=== PATIENT | female | born 1995 | race Two or more races ===

== ENCOUNTER 2024-05-07 05:09 | Emergency (ER) | payer BC, SELFPAY ==
[2024-05-07 05:10] VITALS: BMI 26.5
[2024-05-07 05:17] VITALS: BP 119/69; PULSE 92; RESP 16; TEMP 36.8; O2SAT 98
--- NOTE | 2024-05-07 05:24 | PD.EDRME ---
Rapid Medical Screening Exam RME Arrival date/time: 05/07/24 05:09 28-year-old female presents emergency department complaining of epigastric pain. Chief Complaint: Abdominal Pain Vital signs: Vital Signs Temperature 98.3 F 05/07/24 05:17 Pulse Rate 92 05/07/24 05:17 Respiratory Rate 16 05/07/24 05:17 Blood Pressure 119/69 05/07/24 05:17 Pulse Oximetry (%) 98 05/07/24 05:17 Oxygen Delivery Method Room Air 05/07/24 05:17 Vital signs reviewed by provider: Yes
[2024-05-07 06:00] VITALS: BP 120/80; PULSE 89; RESP 16; TEMP 36.8; O2SAT 100
[2024-05-07 06:16] LABS: Basophils % (Auto) 0 % (0-2.5); Eosinophils % (Auto) 0 % (0-10); Hematocrit 32.2 % (36.0-46.0); Hemoglobin 10.7 g/dL (12.0-16.0); Immature Granulocytes % (Auto) 0 % (0-0); Immature Granulocytes Auto 0.01 Thou/mm3 (0.00-0.00); Lymphocytes # (Auto) 2.2 Thou/mm3 (1.0-4.8); Lymphocytes % (Auto) 46 % (10-50); Mean Corpuscular HGB Conc 33.2 g/dl (31.0-37.0); Mean Corpuscular Hemoglobin 26.9 pg (25.0-35.0); Mean Corpuscular Volume 81 fL (80-100); Monocytes # (Auto) 0.5 Thou/mm3 (0.0-0.8); Monocytes % (Auto) 11 % (0-12); Neutrophils % (Auto) 43 % (37-80); Nucleated Red Blood Cell % 0 /100 WBC (0); Platelet Count 222 Thou/mm3 (140-440); Red Blood Count 3.98 Miln/mm3 (4.00-5.20); White Blood Count 4.7 Thou/mm3 (3.6-11.0)
[2024-05-07 06:28] LABS: Alanine Aminotransferase 11 U/L (10-49); Albumin, Serum 4.7 gm/dL (3.5-5.0); Albumin/Globulin Ratio 1.3 (1.2-2.2); Alkaline Phosphatase 38 U/L (46-116); Anion Gap 9 (7-16); Aspartate Amino Transferase 19 U/L (0-34); BUN/Creatinine Ratio 11 Ratio (12-20); Bilirubin,Total 0.4 mg/dL (0.3-1.2); Blood Urea Nitrogen 9 mg/dL (9-23); Calcium 9.3 mg/dL (8.3-10.6); Calcium (Corrected) 9.3 mg/dL (8.5-10.1); Carbon Dioxide 23.9 mMol/L (20.0-31.0); Chloride 105 mMol/L (98-107); Creatinine (Component) 0.8 mg/dL (0.6-1.3); Estimated Creatinine Clearance 92.3 mL/min (>60); Globulin 3.6 gm/dL (2.3-3.5); Glucose 101 mg/dL (74-106); Lipase 53 U/L (12-53); Osmolality,Calculated 274 (275-295); Potassium 3.4 mMol/L (3.4-5.1); Sodium 138 mMol/L (136-145); Total Protein 8.3 gm/dL (5.7-8.2); eGFR > 60 See Note
[2024-05-07 06:32] LABS: HCG,Qualitative Serum Negative
--- NOTE | 2024-05-07 07:25 | XR_ITS ---
Examination: Abdomen sonogram, complete Date and time of exam: May 07, 2020 4003 hrs. Indications: Epigastric pain beginning 10 days ago. Technique: Multiple real-time grayscale transabdominal sonographic images of the abdomen have been obtained. Findings: Normal gallbladder Normal common bile duct 0.40 cm Pancreatic head 2.0 cm Aorta not enlarged Liver 12.3 cm no liver lesions Normal hepatopedal portal venous flow Patent IVC Right kidney 10.3 x 3.8 x 5.3 cm cortex 1.6 cm Left kidney 10.9 x 5.7 x 5.1 cm cortex 2.1 cm No hydronephrosis Spleen 8.5 cm Impression: Negative examination
[2024-05-07 07:57] LABS: Collection Type, Urine Clean Catch
[2024-05-07 08:08] LABS: Bacteria,Urine Rare; Bilirubin,Urine Negative (Negative); Blood,Urine 3+ (Negative); Clarity,Urine Clear (Clear/Hazy); Color,Urine Colorless (Lt Yel-Yel); Glucose, Urine Negative (Negative); Ketones,Urine Negative (Negative); Leukocyte Esterase,Urine Negative (Negative); Nitrite,Urine Negative (Negative); Protein,Urine Negative (Neg - Trace); RBC,Urine 58 /hpf (0-3); Specific Gravity,Urine 1.005 (1.001-1.035); Squamous Epithelial Cell,Urine 1 /hpf (0-5); Urobilinogen,Urine Negative mg/dL (0.0-1.0); WBC,Urine 12 /hpf (0-5)
[2024-05-07 08:09] LABS: Culture Indicated,Urine Yes
[2024-05-07 08:16] LABS: Amphetamine/Methamp Scrn,U Negative (Negative); Barbiturate Screen,Urine Negative (Negative); Benzodiazepines Screen,Urine Negative (Negative); Benzoylecgonine Screen, Ur Negative (Negative); Fentanyl Screen,Urine Negative (Negative); Opiate Screen,Urine Negative (Negative); THC Screen,Urine Negative (Negative)
[2024-05-07 08:52] VITALS: BP 105/63; PULSE 71; RESP 17; TEMP 37.1; O2SAT 100
--- NOTE | 2024-05-07 12:31 | PD.EDABDPN ---
ED Abdominal Pain RME/HPI General Chief Complaint: Abdominal Pain Stated complaint: EPIGASTRIC PAIN Time seen by provider: 05/07/24 07:16 Arrival date/time: 05/07/24 05:09 RME / HPI RME / HPI narrative: 05/07/24 05:09 28-year-old female presents emergency department complaining of epigastric pain. The patient presented to the emergency department complaining of epigastric abdominal pain which is mild to moderate. It has been going on for nearly 10 days on and off. She is still eating normally. No fever. Nausea with no vomiting. No diarrhea. A little bit constipated. No dysuria. Not . In fact menstruation is now. Related Data Previous Rx's ?Medication ?Instructions ?Recorded azithromycin 250 mg tablet See Rx Instructions PO .COMPLEX #6 05/23/21 (Zithromax Z-Lyle) tabs dexamethasone 6 mg tablet 6 mg PO QDAY #10 tabs 05/23/21 ibuprofen 600 mg tablet 600 mg PO Q6H #30 tabs 11/22/23 ondansetron 4 mg disintegrating 4 mg PO Q8H PRN nausea and 11/22/23 tablet vomiting #10 tabs Allergies Allergy/AdvReac Type Severity Reaction Status Date / Time No Known Allergies Allergy Verified 11/22/23 09:40 Review of Systems Review of Systems Narrative Review of Systems: REVIEW OF SYSTEM: GEN:? negative except mentioned in HPI HEENT:? negative except mentioned in HPI NECK:? negative except mentioned in HPI PULM:? negative except mentioned in HPI CARD:? negative except mentioned in HPI GI:? negative except mentioned in HPI MUSCULO/SKET: negative except mentioned in HPI SKIN:? negative except mentioned in HPI NEURO:? negative except mentioned in HPI PSYCH:? negative except mentioned in HPI Past Medical History Past Medical History CARDIAC: Negative Cardiac Disorders or Congestive Heart Failure RESPIRATORY: Negative Chronic Obstructive Pulmonary Disease (COPD) or Asthma GENITOURINARY: Negative Renal Disease ENDOCRINE: Negative Diabetes Mellitus Type 1 or Diabetes Mellitus Type 2 HEMATOLOGIC: Negative Sickle Cell Disease Social History SMOKING STATUS: Never smoker Past Medical History Comments PMH COMMENT: Patient has had a lot of umbilical hernia and ventral hernia repair episode. Also history of anemia. No smoking. No alcohol. No drug use. ED Exam Narrative Physical exam: Aaox4. No acute distress O2 saturation is normal Heent:? perra. Eomi. No icteric. Neck: full rom.? No mass.? No jvd.? No lymphadenopathy Lungs:? clear, full, equal Heart:? s1s2.? Rrr.? No murmur, gallop or rub. Abd: soft, nondistended, nontender, no mass, no rebound or guarding, no flank tender.? No incarcerated? hernia Ext:? full rom.? No deformity.? Normal csm. Neuro:?? intact cn2 to 12.? No facial droop.? No slurred speech.? No focal deficit.? Moves all 4ext Skin:? no rash.? No cellulitis.? No lesion.? No laceration Psychiatrical: no suicidal.? No homicidal.? No delusion.? No hallucinating Course Quality Measures none Orders Category Date Time Status US abdomen Stat Exams 05/07/24 07:25 Completed CBC Stat Lab 05/07/24 06:03 Completed CMP [Comprehensive Metabolic Panel] Stat Lab 05/07/24 06:03 Completed Drug Screen,Urine Stat Lab 05/07/24 07:42 Completed HCG,Qualitative Serum Stat Lab 05/07/24 06:03 Completed Lipase Stat Lab 05/07/24 06:03 Completed Urinalysis, C/S if Indicated Stat Lab 05/07/24 07:42 Completed Urine Culture Stat Lab 05/07/24 07:42 Received Vital Signs Vital signs: Vital Signs Temperature 98.3 F 05/07/24 05:17 Pulse Rate 92 05/07/24 05:17 Respiratory Rate 16 05/07/24 05:17 Blood Pressure 119/69 05/07/24 05:17 Pulse Oximetry (%) 98 05/07/24 05:17 Oxygen Delivery Method Room Air 05/07/24 05:17 Abdominal Pain MDM MDM Narrative MDM Narrative:: CBC unremarkable. CMP and lipase are negative. UA is negative. test is negative. U tox is negative. [facility] [address] [place] [address] [facility] Report Signed Patient: BELÉN PALUMBO. Record#: [id number] Birthdate: 1995 Age/Sex: 28 / F Location: [facility] Attending Dr: Ordering Physician: Joselo Das MD Date of Service: 05/07/24 Procedure(s): US abdomen Accession Number(s): [id number] cc: Damion Freeman MD; Aristeo Alvarez MD; Joselo Das MD~ Examination: Abdomen sonogram, complete Date and time of exam: May 07, 2020 4003 hrs. Indications: Epigastric pain beginning 10 days ago. Technique: Multiple real-time grayscale transabdominal sonographic images of the abdomen have been obtained. 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 12:33 PM, the patient is symptom-free and eager to go home. Patient data External records reviewed:: [facility] previous records Clinical information provided by:: patient Social determinants that could affect healthcare access:: none Patient has the following chronic illnesses:: None How is presenting disease/condition affected by chronic disease/condition?: no chronic disease Evaluation data The following diagnostics were reviewed and interpreted by me:: lab results and radiology exam(s) Lab and/or radiology exams considered but not ordered:: None Interpretation Summary: See [facility] Medications / Prescriptions Medications or Prescriptions considered but not ordered:: None Medication administrations:: None Consultations Consultation(s) initiated? (list below): No Diagnosis Differential diagnosis abdominal pain: abdominal pain, calculus of kidney and other (Cholelithiasis. Cholecystitis.) Most likely diagnosis given after review of the tests above:: Abdominal pain Admission Indicated Admission indicated?: not indicated Admission Request Was there a request for admission?: No Disposition Plan Disposition Plan: Discharge Discharge Attestation Discharge Attestation: The patient and all family members were given an opportunity to ask questions and understood the discharge instructions. Discharge instructions specifically effects, indications for sooner follow up or return to the emergency department, and the expected course of current diagnosis. Patient condition: Stable Discharge Plan Plan Patient Disposition: HOME (Self Care) Disposition Comment: Stable for DC home Prescriptions/Referrals Prescriptions/Med Rec: No Action azithromycin [Zithromax Z-Lyle] 250 mg tablet See Rx Instructions .ROUTE .COMPLEX Qty: 6 0RF Rx Instructions: take 500 mg today (day 1), then 250 mg for 4 days (days 2-5) dexamethasone 6 mg tablet 6 mg PO QDAY Qty: 10 0RF ibuprofen 600 mg tablet 600 mg PO Q6H Qty: 30 0RF ondansetron 4 mg tablet,disintegrating 4 mg PO Q8H PRN (Reason: nausea and vomiting) Qty: 10 0RF Referrals: Damion Freeman MD [Primary Care Provider] - In 1 week Problem List Clinical Impression: Abdominal pain Patient/Caregiver Discharge Instructions Education Materials: Abdominal Pain Additional Instructions: Liquid diet for 24 hours. See your doctor for recheck in 3 days. Return to the emergency department if condition worsens or if new symptoms develop especially fever Print Language: Telugu Stand Alone Forms: Mae Award Info., Patient Portal Info Letter
== END 2024-05-07 12:50 | disposition home or self-care (01) ==
PROVIDERS: Emergency Provider Emergency Medicine; PCP Internal Medicine
DX: R10.13 Epigastric pain (principal)
CPT/HCPCS: 36415; 76700; 80053; 80307; 81001; 83690; 84703; 85025; 87086; 99284

== ENCOUNTER 2024-05-10 19:09 | Emergency (ER) | payer BC, SELFPAY ==
[2024-05-10 19:11] VITALS: BMI 26.5
--- NOTE | 2024-05-10 19:15 | EKG_ITS ---
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
[2024-05-10 19:19] VITALS: BP 115/78; PULSE 76; RESP 20; TEMP 37.1; O2SAT 98
--- NOTE | 2024-05-10 19:56 | PD.EDANX ---
ED Anxiety RME/HPI General Chief Complaint: Dizziness Stated Complaint: Dizziness and CP tightness with breathing Time Seen by Provider: 05/10/24 19:55 Arrival date/time: 05/10/24 19:09 28F with history of chronic sinusitis and anxiety presents to ED with sudden dizziness, CP, SOB, and anxiety w/o trigger today. It is getting better, but still there. Patient saw ENT doctor who will do sinus endoscopy next month. Patient denies SI/HI. Patient was here several days ago for ab pain with unremarkable blood work and urine studies. Limitations: no limitations Related Data Previous Rx's ?Medication ?Instructions ?Recorded azithromycin 250 mg tablet See Rx Instructions PO .COMPLEX #6 05/23/21 (Zithromax Z-Lyle) tabs dexamethasone 6 mg tablet 6 mg PO QDAY #10 tabs 05/23/21 ibuprofen 600 mg tablet 600 mg PO Q6H #30 tabs 11/22/23 ondansetron 4 mg disintegrating 4 mg PO Q8H PRN nausea and 11/22/23 tablet vomiting #10 tabs Allergies Allergy/AdvReac Type Severity Reaction Status Date / Time No Known Allergies Allergy Verified 11/22/23 09:40 Review of Systems Review of Systems Systems Reviewed: All systems reviewed, normal except as documented Constitutional Constitutional: Reports system reviewed and no additional complaints, except as documented, Denies fever(s) and Denies headache(s) ENT Ears, Nose, Mouth, and Throat: Reports as per HPI, Denies disequilibrium, Denies headache(s) and Reports vertigo Cardiovascular Cardiovascular: Reports system reviewed and no additional complaints, except as documented, Reports as per HPI, Reports chest pain and Reports dyspnea Respiratory Respiratory: Reports system reviewed and no additional complaints, except as documented, Denies cough and Reports dyspnea Gastrointestinal Gastrointestinal: Reports system reviewed and no additional complaints, except as documented, Denies abdominal pain, Denies nausea and Denies vomiting Neurologic Neurologic: Reports system reviewed and no additional complaints, except as documented, Denies confusion, Denies disequilibrium, Denies headache(s) and Reports vertigo Psychiatric Psychiatric: Denies confusion Past Medical History Past Medical History CARDIAC: Negative Cardiac Disorders or Congestive Heart Failure RESPIRATORY: Negative Chronic Obstructive Pulmonary Disease (COPD) or Asthma GENITOURINARY: Negative Renal Disease ENDOCRINE: Negative Diabetes Mellitus Type 1 or Diabetes Mellitus Type 2 HEMATOLOGIC: Negative Sickle Cell Disease Social History SMOKING STATUS: Never smoker ED Exam General Limitations: Present no limitations General appearance: Present alert and in no apparent distress Head Head exam: Present atraumatic Eye Eye exam: Present normal appearance, PERRL and EOMI ENT ENT exam: Present normal exam, normal oropharynx and mucous membranes moist Neck Neck exam: Present normal inspection, full ROM and trachea midline Chest Chest inspection: Present normal inspection and symmetric chest wall rise Respiratory Respiratory exam: Present normal lung sounds bilaterally Cardiovascular Cardiovascular exam: Present regular rate, normal rhythm and normal heart sounds Abdominal Exam Abdominal exam: Present soft and normal bowel sounds Extremities Exam Extremities exam: Present normal inspection and full ROM Back Exam Back exam: Present normal inspection and full ROM Neurological Exam Neurological exam: Present alert, oriented X3 and CN II-XII intact Psychiatric Psychiatric exam: Present normal affect and anxious (mild) Skin Skin exam: Present warm, dry, intact and normal color Course Quality Measures none Orders Category Date Time Status EKG (ED ONLY) *Do not use* NOW Care 05/10/24 19:15 Completed EKG (ED Only) Stat Exams 05/10/24 19:15 Draft Diazepam [Valium] Med 05/10/24 19:55 Discontinued 10 mg PO X1 ONE Vital Signs Vital signs: Vital Signs Temperature 98.7 F 05/10/24 19:19 Pulse Rate 76 05/10/24 19:19 Respiratory Rate 20 05/10/24 19:19 Blood Pressure 115/78 05/10/24 19:19 Pulse Oximetry (%) 98 05/10/24 19:19 Oxygen Delivery Method Room Air 05/10/24 19:19 Anxiety MDM Narrative MDM Narrative: 28F with history of chronic sinusitis and anxiety presents to ED with sudden dizziness, CP, SOB, and anxiety w/o trigger today. It is getting better, but still there. Patient saw ENT doctor who will do sinus endoscopy next month. Patient denies SI/HI. Patient was here several days ago for ab pain with unremarkable blood work and urine studies. Physical exam reveals normal pupil response and EOM. ENT and lungs clear. RRR. Patient is afebrile, alert, but mildly anxious. EKG is NSR. Likely anxiety/panic attack with chronic sinusitis contributing to dizziness. Valium improved symptoms. Patient data External records reviewed:: [facility] previous records Clinical information provided by:: patient Social determinants that could affect healthcare access:: mental health Patient has the following chronic illnesses:: anxiety How is presenting disease/condition affected by chronic disease/condition?: exacerbated by Evaluation data The following diagnostics were reviewed and interpreted by me:: EKG tracing(s) Lab and/or radiology exams considered but not ordered:: ordered Interpretation Summary: above Medications / Prescriptions Medications or Prescriptions considered but not ordered:: ordered Medication administrations:: Medication Administration History Discontinued Medications Diazepam (Diazepam 5 Mg Tablet) 10 mg PO X1 ONE Stop: 05/10/24 19:56 Consultations Consultation(s) initiated? (list below): No Diagnosis Differential diagnosis anxiety: hyperventilation, panic disorder and acute anxiety Most likely diagnosis given after review of the tests above:: anxiety Admission Indicated Admission indicated?: not indicated Admission Request Was there a request for admission?: No Disposition Plan Disposition Plan: Discharge Discharge Attestation Discharge Attestation: The patient and all family members were given an opportunity to ask questions and understood the discharge instructions. Discharge instructions specifically effects, indications for sooner follow up or return to the emergency department, and the expected course of current diagnosis. Patient condition: Stable Discharge Plan Plan Patient Disposition: HOME (Self Care) Disposition Comment: Stable Prescriptions/Referrals Prescriptions/Med Rec: No Action azithromycin [Zithromax Z-Lyle] 250 mg tablet See Rx Instructions .ROUTE .COMPLEX Qty: 6 0RF Rx Instructions: take 500 mg today (day 1), then 250 mg for 4 days (days 2-5) dexamethasone 6 mg tablet 6 mg PO QDAY Qty: 10 0RF ibuprofen 600 mg tablet 600 mg PO Q6H Qty: 30 0RF ondansetron 4 mg tablet,disintegrating 4 mg PO Q8H PRN (Reason: nausea and vomiting) Qty: 10 0RF Referrals: Damion Freeman MD [Primary Care Provider] - In 1 week Problem List Clinical Impression: Anxiety Patient/Caregiver Discharge Instructions Education Materials: Your Body's Response to Anxiety Additional Instructions: Please follow-up with PCP within 24-48 hours and return immediately if symptoms worsen. Print Language: Thai Stand Alone Forms: Patient Portal Info Letter PA/LANDEN Supervising Physician HUEY/LADNEN Supervising Physician: Dr. Hendrickson
[2024-05-10] MEDS: DIAZEPAM 5 MG TABLET 10 MG PO (20:01)
== END 2024-05-10 20:53 | disposition home or self-care (01) ==
PROVIDERS: Emergency Provider Emergency Medicine; PCP Internal Medicine
DX: F41.9 Anxiety disorder, unspecified (principal); R94.31 Abnormal electrocardiogram [ECG] [EKG]
CPT/HCPCS: 93005; 99283; A9270

== ENCOUNTER → 2024-08-18 | Outpatient (CLI) | payer BC, SELFPAY ==
[2024-08-18 10:21] LABS: Basophils % (Auto) 0 % (0-2.5); Eosinophils % (Auto) 0 % (0-10); Hematocrit 31.2 % (36.0-46.0); Hemoglobin 10.4 g/dL (12.0-16.0); Immature Granulocytes % (Auto) 0 % (0-0); Immature Granulocytes Auto 0.01 Thou/mm3 (0.00-0.00); Lymphocytes # (Auto) 1.6 Thou/mm3 (1.0-4.8); Lymphocytes % (Auto) 42 % (10-50); Mean Corpuscular HGB Conc 33.3 g/dl (31.0-37.0); Mean Corpuscular Hemoglobin 25.9 pg (25.0-35.0); Mean Corpuscular Volume 78 fL (80-100); Monocytes # (Auto) 0.4 Thou/mm3 (0.0-0.8); Monocytes % (Auto) 10 % (0-12); Neutrophils # (Auto) 1.8 Thou/mm3 (1.8-7.7); Neutrophils % (Auto) 47 % (37-80); Nucleated Red Blood Cell % 0 /100 WBC (0); Platelet Count 211 Thou/mm3 (140-440); RDW Standard Deviation 42.8 fL (36.4-46.3); Red Blood Count 4.02 Miln/mm3 (4.00-5.20); White Blood Count 3.9 Thou/mm3 (3.6-11.0)
[2024-08-18 11:39] LABS: Ferritin 4 ng/mL (7.3-270.7); Iron 41 mcg/dL (50-170)
[2024-08-18 11:51] LABS: Glucose Estimated Average 120 mg/dL (80-131); Hemoglobin A1C 5.8 % Hgb (4.8-6.0)
[2024-08-18 11:53] LABS: Vitamin B12 460 pg/mL (211-911); Vitamin D 25 Hydroxy Total 28.9 ng/mL (7.3-40.2)
[2024-08-18 11:54] LABS: Alanine Aminotransferase 10 U/L (10-49); Albumin, Serum 4.5 gm/dL (3.5-5.0); Albumin/Globulin Ratio 1.3 (1.2-2.2); Alkaline Phosphatase 31 U/L (46-116); Anion Gap 10 (7-16); Aspartate Amino Transferase 20 U/L (0-34); BUN/Creatinine Ratio 17 Ratio (12-20); Bilirubin,Total 0.4 mg/dL (0.3-1.2); Blood Urea Nitrogen 12 mg/dL (9-23); Calcium 9.9 mg/dL (8.3-10.6); Calcium (Corrected) 9.9 mg/dL (8.5-10.1); Carbon Dioxide 23.5 mMol/L (20.0-31.0); Cardiac Risk Estimate 2.8 RATIO (3.7-5.6); Chloride 107 mMol/L (98-107); Cholesterol 158 mg/dL (132-200); Creatinine (Component) 0.7 mg/dL (0.6-1.3); Free T4 (Free Thyroxine) 1.09 ng/dL (0.89-1.76); Globulin 3.5 gm/dL (2.3-3.5); Glucose 87 mg/dL (74-106); HDL Cholesterol 57 mg/dL (40-60); LDL Cholesterol,Calculated 91 mg/dL (0-130); Osmolality,Calculated 278 (275-295); Potassium 4.1 mMol/L (3.4-5.1); Sodium 140 mMol/L (136-145); Thyroid Stimulating Hormone 1.17 uIU/mL (0.55-4.78); Triglycerides 51 mg/dL (30-150); eGFR > 60 See Note
== END | disposition home or self-care (01) ==
LOC: COPL 09:25
PROVIDERS: PCP Internal Medicine; Referring Provider Internal Medicine; Visit Provider Internal Medicine
DX: Z00.00 Encounter for general adult medical examination without abnormal findings (principal); E55.9 Vitamin D deficiency, unspecified
CPT/HCPCS: 36415; 80053; 80061; 82306; 82607; 82728; 83036; 83540; 84439; 84443; 85025

== ENCOUNTER → 2024-09-14 | Outpatient (CLI) | payer BC, SELFPAY ==
[2024-09-22 06:49] LABS: ANA Pattern CYTOPLASMIC; ANA Pattern NUCLEAR, SPECKLED; ANA Screen, IFA POSITIVE (NEGATIVE)
== END | disposition home or self-care (01) ==
PROVIDERS: PCP Internal Medicine; Referring Provider Specialist; Visit Provider Specialist
DX: R53.83 Other fatigue (principal)
CPT/HCPCS: 36415; 86038

== ENCOUNTER → 2024-10-27 | Outpatient (CLI) | payer BC, SELFPAY ==
--- NOTE | 2024-10-27 13:30 | XR_ITS ---
Examination: Abdomen sonogram, Limited Date and time of exam: October 27, 2024 1331 hours INDICATIONS: Heartburn esophageal reflux 3 years Technique: Real-time strange scale transabdominal sonographic images of the upper abdomen obtained. Findings: Normal gallbladder Normal common bile duct 0.3 cm Pancreatic head 1.5 cm Liver 13 cm fatty infiltration smooth contour No focal liver lesions Normal hepatopedal portal venous flow IMPRESSION: Normal gallbladder Normal common bile duct Fatty liver
--- NOTE | 2024-10-27 14:00 | XR_ITS ---
Examination: Thyroid sonography complete TECHNIQUE: Grayscale sonographic images thyroid lobes Date and time: October 27, 2024 1326 hours INDICATIONS: Fatigue one year FINDINGS: Right thyroid 4.5 cm Left thyroid 3.6 cm No solid nodules IMPRESSION: Negative examination
== END | disposition home or self-care (01) ==
LOC: CDIM 13:15
PROVIDERS: PCP Internal Medicine; Referring Provider Specialist; Visit Provider Specialist
DX: K76.0 Fatty (change of) liver, not elsewhere classified (principal); R53.83 Other fatigue
CPT/HCPCS: 76536; 76705

== ENCOUNTER 2024-11-17 12:00 | Day surgery (SDC) | payer BC, SELFPAY ==
[2024-11-16 15:34] LABS: HCG Qualitative,Urine Negative
[2024-11-16 16:26] VITALS: BMI 24.1
[2024-11-17] VITALS (10 sets, daily range): BP systolic 118–140; BP diastolic 68–85; PULSE 82–140; RESP 14–20; TEMP 36.6–36.9; O2SAT 98–100; BMI 23.3
[2024-11-17] MEDS: SODIUM CHLORIDE 0.9% 500 ML 500 ML 20 ML IV (13:40)
[2024-11-17] MEDS: BENZOCAINE 20% (Hurricaine) SPRAY 1 DOSE TOP (13:41)
[2024-11-17] MEDS: DiphenhydrAMINE INJ 50 MG/ML VIAL 25 MG IVP (13:42)
[2024-11-17] MEDS: fentaNYL CIT INJ 50 mCg/ML AMP 2ML (ASD USE ONLY) IVP (13:48)
[2024-11-17] MEDS: MIDAZOLAM INJ 1 MG/ML VIAL 2 ML (ASD USE ONLY) 2 MG IVP (13:48)
== END 2024-11-17 14:50 | disposition home or self-care (01) ==
PROVIDERS: PCP Internal Medicine; Referring Provider Specialist; Visit Provider Specialist
PROC: (CPT 43239; principal; 2024-11-17 12:15)
DX: K20.90 Esophagitis, unspecified without bleeding (principal); K22.2 Esophageal obstruction; K29.70 Gastritis, unspecified, without bleeding; K29.50 Unspecified chronic gastritis without bleeding; K31.89 Other diseases of stomach and duodenum
CPT/HCPCS: 43239; 43248; 81025; C1769; J1200; J2250; J3010; J7999; A9270

== ENCOUNTER → 2025-02-06 | Outpatient (CLI) | payer BC, SELFPAY ==
[2025-02-06 16:19] LABS: Collection Type, Urine Clean Catch; RBC,Urine 0 /hpf (0-3)
[2025-02-06 17:10] LABS: Bacteria,Urine Rare; Bilirubin,Urine Negative (Negative); Blood,Urine Negative (Negative); Clarity,Urine Clear (Clear/Hazy); Color,Urine Colorless (Lt Yel-Yel); Culture Indicated,Urine Not Indicated; Glucose, Urine Negative (Negative); Ketones,Urine Negative (Negative); Leukocyte Esterase,Urine Negative (Negative); Nitrite,Urine Negative (Negative); PH,Urine 6.5 (5.0-7.0); Protein,Urine Negative (Neg - Trace); Specific Gravity,Urine 1.011 (1.001-1.035); Squamous Epithelial Cell,Urine < 1 /hpf (0-5); Urobilinogen,Urine Negative mg/dL (0.0-1.0); WBC,Urine 1 /hpf (0-5)
== END | disposition home or self-care (01) ==
LOC: SLDO 16:07
PROVIDERS: PCP Internal Medicine; Referring Provider Internal Medicine; Visit Provider Internal Medicine
DX: N39.0 Urinary tract infection, site not specified (principal)
CPT/HCPCS: 81001

== ENCOUNTER 2025-02-15 12:58 | Emergency (ER) | payer BC, SELFPAY ==
[2025-02-15 13:39] VITALS: BP 123/81; PULSE 80; RESP 16; TEMP 37.2; O2SAT 95; BMI 22.8
--- NOTE | 2025-02-15 13:39 | XR_ITS ---
Examination: Pelvic ultrasound, transabdominal, complete Technique: Transabdominal ultrasound of the pelvis performed using grayscale imaging Date and time of exam: February 15, 2025, 1452 hours INDICATIONS: Pelvic pain beginning 2 weeks ago FINDINGS: Uterus 11.2 cm endometrial stripe 0.7 cm No uterine mass or intrauterine gestation Right ovary 4.0 cm arterial flow Left ovary 3.4 cm arterial flow IMPRESSION: Negative examination
--- NOTE | 2025-02-15 13:39 | XR_ITS ---
Examination: CT abdomen and pelvis without contrast. Coronal 3-D reconstructions. Sagittal 2-D reconstructions. Date and time of exam:February 15, 2025, 1557 hours, comparison May 25, 2023 INDICATIONS: Bilateral flank pain CTDI: vol (mGy): 5.13 DLP: (mGycm): 245 Technique: Axial images of the abdomen have been obtained, 3 mm slice thickness Intravenous contrast material has not been administered. Low dose protocols were performed. One or more of the following dose reduction techniques were used; automated exposure control, adjustment of the mA and/or KV according to patient size, use of iterative reconstruction technique. Findings: No focal liver or splenic lesions No gallstones No pancreatic or adrenal mass No renal or ureteral calculi, no hydronephrosis Normal appendix Retroverted uterus No bladder mass or bladder calculi No diverticulitis Osseous structures are intact IMPRESSION: No renal or ureteral calculi, no hydronephrosis Normal appendix No bladder mass or bladder calculi Retroverted uterus, no pelvic mass
--- NOTE | 2025-02-15 13:40 | PD.EDRME ---
Rapid Medical Screening Exam RME Arrival date/time: 02/15/25 12:58 2-year-old female presents to the emergency brought today for mid abdominal pain and pelvic pain Chief Complaint: Urogenital-Female
[2025-02-15 14:20] LABS: Basophils # (Auto) 0.0 Thou/mm3 (0.0-0.2); Basophils % (Auto) 0 % (0-2.5); Eosinophils # (Auto) 0.0 Thou/mm3 (0.0-0.5); Eosinophils % (Auto) 0 % (0-10); Hematocrit 33.3 % (36.0-46.0); Hemoglobin 10.7 g/dL (12.0-16.0); Immature Granulocytes Auto 0.01 Thou/mm3 (0.00-0.00); Lymphocytes # (Auto) 1.7 Thou/mm3 (1.0-4.8); Lymphocytes % (Auto) 38 % (10-50); Mean Corpuscular HGB Conc 32.1 g/dl (31.0-37.0); Mean Corpuscular Hemoglobin 25.4 pg (25.0-35.0); Mean Corpuscular Volume 79 fL (80-100); Monocytes # (Auto) 0.3 Thou/mm3 (0.0-0.8); Monocytes % (Auto) 8 % (0-12); Neutrophils # (Auto) 2.4 Thou/mm3 (1.8-7.7); Neutrophils % (Auto) 54 % (37-80); Nucleated Red Blood Cell # 0.00 Thou/mm3 (0.00-0.00); Nucleated Red Blood Cell % 0 /100 WBC (0); Platelet Count 238 Thou/mm3 (140-440); RDW Standard Deviation 47.8 fL (36.4-46.3); Red Blood Count 4.21 Miln/mm3 (4.00-5.20); White Blood Count 4.4 Thou/mm3 (3.6-11.0)
[2025-02-15 14:30] LABS: Collection Type, Urine Clean Catch
[2025-02-15 14:41] LABS: Alanine Aminotransferase 12 U/L (10-49); Albumin, Serum 4.8 gm/dL (3.5-5.0); Albumin/Globulin Ratio 1.3 (1.2-2.2); Alkaline Phosphatase 36 U/L (46-116); Anion Gap 11 (7-16); Aspartate Amino Transferase 23 U/L (0-34); BUN/Creatinine Ratio 13 Ratio (12-20); Bilirubin,Total 0.3 mg/dL (0.3-1.2); Blood Urea Nitrogen 9 mg/dL (9-23); Calcium 9.7 mg/dL (8.3-10.6); Calcium (Corrected) 9.7 mg/dL (8.5-10.1); Carbon Dioxide 25.8 mMol/L (20.0-31.0); Chloride 104 mMol/L (98-107); Creatinine (Component) 0.7 mg/dL (0.6-1.3); Estimated Creatinine Clearance 92.9 mL/min (>60); Globulin 3.6 gm/dL (2.3-3.5); Glucose 96 mg/dL (74-106); Lipase 59 U/L (12-53); Osmolality,Calculated 279 (275-295); Potassium 3.9 mMol/L (3.4-5.1); Sodium 141 mMol/L (136-145); Total Protein 8.4 gm/dL (5.7-8.2); eGFR > 60 See Note
[2025-02-15 14:46] LABS: HCG Qualitative,Urine Negative
[2025-02-15 14:50] LABS: Bilirubin,Urine Negative (Negative); Blood,Urine Negative (Negative); Clarity,Urine Clear (Clear/Hazy); Color,Urine Colorless (Lt Yel-Yel); Culture Indicated,Urine Not Indicated; Glucose, Urine Negative (Negative); Ketones,Urine Negative (Negative); Leukocyte Esterase,Urine Negative (Negative); Nitrite,Urine Negative (Negative); PH,Urine 6.5 (5.0-7.0); Protein,Urine Negative (Neg - Trace); RBC,Urine < 1 /hpf (0-3); Specific Gravity,Urine 1.006 (1.001-1.035); Squamous Epithelial Cell,Urine < 1 /hpf (0-5); Urobilinogen,Urine Negative mg/dL (0.0-1.0); WBC,Urine < 1 /hpf (0-5)
[2025-02-15 17:44] VITALS: BP 114/75; PULSE 78; RESP 17; TEMP 37.1; O2SAT 97
--- NOTE | 2025-02-15 17:58 | EDNOTE_ITS ---
ED Female Urogenital RME/HPI General Chief complaint: Urogenital-Female Stated complaint: PELVIC PAIN X 2 WKS Time Seen by Provider: 02/15/25 17:50 Arrival date/time: 02/15/25 12:58 RME / HPI RME / HPI Narrative: 29-year-old female presents to the emergency brought today for mid abdominal pain and pelvic pain, has been ongoing for 2 weeks, comes and goes, severity mild. Patient denies any fever vomiting diarrhea constipation dysuria frequency hematuria. Patient was seen and evaluated already by PCP and HELPER TEACHER and was told that everything is normal. Related Data Home Medications ?Medication ?Instructions ?Recorded ?Confirmed No Known Home Medications 11/17/2410/23 Allergies Allergy/AdvReac Type Severity Reaction Status Date / Time No Known Allergies Allergy Verified 02/15/25 13:00 Review of Systems Review of Systems Narrative Review of Systems: Review of system reviewed and within normal limits except mentioned in HPI ED Exam Narrative Physical exam: VITAL SIGNS: Reviewed. GENERAL APPEARANCE: Alert and interactive, follows commands, no acute distress, HEAD AND FACE: Non-traumatic. ENT: PERRL, pink conjunctivitis, eyelid no trauma, Mucous membrane moist. NECK: Supple, nontender, no nuchal rigidity. CHEST: No tenderness, no crepitus, no paradoxical movement, no retractions. LUNGS: Clear, well ventilated, symmetric, no rales, no wheezing, no ronchi, no stridor, good breath sounds bilaterally. HEART: Regular rate, regular rhythm, no murmur, no gallops. ABDOMEN: Soft, positive bowel sounds, nondistended, no guarding, nontender, no rebound, no masses, RECTAL: Deferred. GENITAL: Deferred. NEUROLOGICAL: Gross motor function intact sensory function intact, Appropriate for age. MUSCULOSKELETAL: low back nontender, full range of motion. EXTREMITIES: Nontender, full range of motion. SKIN: Color pink, dry, no rash, no lacerations, no abrasions, no contusions. LYMPHATICS: Deferred. Course Quality Measures none Orders Category Date Time Status CT abdomen pelvis wo con Stat Exams 02/15/25 13:39 Completed US pelvic complete Stat Exams 02/15/25 13:39 Completed CBC Stat Lab 02/15/25 14:09 Completed Comprehensive Metabolic Panel Stat Lab 02/15/25 14:09 Completed HCG Qualitative,Urine Stat Lab 02/15/25 14:18 Completed Lipase Stat Lab 02/15/25 14:09 Completed UA, C/S IF [Urinalysis, C/S if Indicated] Stat Lab 02/15/25 14:18 Completed Vital Signs Vital signs: Vital Signs Temperature 98.9 F 02/15/25 13:39 Pulse Rate 80 02/15/25 13:39 Respiratory Rate 16 02/15/25 13:39 Blood Pressure 123/81 02/15/25 13:39 Pulse Oximetry (%) 95 02/15/25 13:39 Oxygen Delivery Method Room Air 02/15/25 13:39 Urogenital - Female MDM Narrative MDM Narrative:: 29-year-old female presents to the emergency brought today for mid abdominal pain and pelvic pain, has been ongoing for 2 weeks, comes and goes, severity mild. Patient denies any fever vomiting diarrhea constipation dysuria frequency hematuria. Patient was seen and evaluated already by PCP and HELPER TEACHER and was told that everything is normal. Patient's laboratory workup today all came back normal. CT scan of the abdomen pelvis came back unremarkable. Ultrasound of the pelvis also came back unremarkable. Results discussed with patient and patient was also given a copy of her CT scan and ultrasound results. Patient stable for discharge home. Patient data External records reviewed:: None Clinical information provided by:: patient and family Social determinants that could affect healthcare access:: none Patient has the following chronic illnesses:: Still pending diagnosis of SLE How is presenting disease/condition affected by chronic disease/condition?: no chronic disease Evaluation data The following diagnostics were reviewed and interpreted by me:: lab results and radiology exam(s) Lab and/or radiology exams considered but not ordered:: None Interpretation Summary: See results [facility] Medications / Prescriptions Medications or Prescriptions considered but not ordered:: None Medication administrations:: None Consultations Consultation(s) initiated? (list below): No Diagnosis Urogenital Female Differential Diagnosis: urinary tract infection and other (Pelvic pain abdominal pain) Most likely diagnosis given after review of the tests above:: Pelvic pain, abdominal pain Admission Indicated Admission indicated?: not indicated Admission Request Was there a request for admission?: No Disposition Plan Disposition Plan: Discharge Discharge Attestation Discharge Attestation: The patient and all family members were given an opportunity to ask questions and understood the discharge instructions. Discharge instructions specifically effects, indications for sooner follow up or return to the emergency department, and the expected course of current diagnosis. Patient condition: Stable Discharge Plan Plan Patient Disposition: HOME (Self Care) Discharge Disposition comment: Stable Prescriptions/Referrals Prescriptions/Med Rec: No Action No Known Home Medications Referrals: Damion Freeman MD [Primary Care Provider, Internal Medicine] - In 1 week Problem List Clinical Impression: Pelvic pain Patient/Caregiver Discharge Instructions Discharge Activity: activity as tolerated Education Materials: ED Pelvic Pain, Unknown Cause Additional Instructions: Thank you for the opportunity for serving you today. You are stable for discharged . You are advised to: Follow-up with your PCP in 1 to 2 days Return to ED for worsening of symptoms Increase oral fluids Take [id number] Tylenol or Motrin as needed for pain Print Language: [place] Stand Alone Forms: Mae Award Info., Work/School Release, Patient Portal Info Letter HUEY/LANDEN Supervising Physician HUEY/LANDEN Supervising Physician: MD Justen
== END 2025-02-15 18:46 | disposition home or self-care (01) ==
PROVIDERS: Nurse Practitioner Primary Care; Emergency Provider Emergency Medicine; PCP Internal Medicine
DX: R10.2 Pelvic and perineal pain (principal); R10.9 Unspecified abdominal pain
CPT/HCPCS: 36415; 74176; 76856; 80053; 81001; 81025; 83690; 85025; 99284

== ENCOUNTER → 2025-02-16 | Outpatient (CLI) | payer BC, SELFPAY ==
[2025-02-16 15:43] LABS: Misc Send Out* See Sep Rpt
[2025-02-16 16:41] LABS: Basophils # (Auto) 0.0 Thou/mm3 (0.0-0.2); Basophils % (Auto) 0 % (0-2.5); Eosinophils # (Auto) 0.0 Thou/mm3 (0.0-0.5); Eosinophils % (Auto) 1 % (0-10); Hematocrit 34.2 % (36.0-46.0); Hemoglobin 10.9 g/dL (12.0-16.0); Immature Granulocytes Auto 0.00 Thou/mm3 (0.00-0.00); Lymphocytes # (Auto) 1.9 Thou/mm3 (1.0-4.8); Lymphocytes % (Auto) 47 % (10-50); Mean Corpuscular HGB Conc 31.9 g/dl (31.0-37.0); Mean Corpuscular Hemoglobin 25.1 pg (25.0-35.0); Mean Corpuscular Volume 79 fL (80-100); Monocytes # (Auto) 0.3 Thou/mm3 (0.0-0.8); Monocytes % (Auto) 8 % (0-12); Neutrophils # (Auto) 1.8 Thou/mm3 (1.8-7.7); Neutrophils % (Auto) 45 % (37-80); Nucleated Red Blood Cell # 0.00 Thou/mm3 (0.00-0.00); Nucleated Red Blood Cell % 0 /100 WBC (0); Platelet Count 236 Thou/mm3 (140-440); RDW Standard Deviation 47.5 fL (36.4-46.3); Red Blood Count 4.34 Miln/mm3 (4.00-5.20); White Blood Count 4.0 Thou/mm3 (3.6-11.0)
[2025-02-16 16:54] LABS: Sed Rate (ESR) 72 mm/hr (0-20)
[2025-02-16 17:01] LABS: Ferritin 5 ng/mL (7.3-270.7); Iron 20 mcg/dL (50-170); Percent Iron Saturation 5 % (20-55); Total Iron Binding Capacity 369 mcg/dL (250-425); Unsaturated Iron Binding 349 (225-295)
[2025-02-16 17:04] LABS: Alanine Aminotransferase 11 U/L (10-49); Albumin, Serum 4.7 gm/dL (3.5-5.0); Albumin/Globulin Ratio 1.4 (1.2-2.2); Alkaline Phosphatase 35 U/L (46-116); Anion Gap 10 (7-16); Aspartate Amino Transferase 20 U/L (0-34); BUN/Creatinine Ratio 13 Ratio (12-20); Bilirubin,Total 0.3 mg/dL (0.3-1.2); Blood Urea Nitrogen 12 mg/dL (9-23); C-Reactive Protein < 0.5 mg/dL (0.0-0.9); Calcium 9.9 mg/dL (8.3-10.6); Calcium (Corrected) 9.9 mg/dL (8.5-10.1); Carbon Dioxide 27.1 mMol/L (20.0-31.0); Chloride 104 mMol/L (98-107); Creatinine (Component) 0.9 mg/dL (0.6-1.3); Free T4 (Free Thyroxine) 1.21 ng/dL (0.89-1.76); Globulin 3.4 gm/dL (2.3-3.5); Glucose 96 mg/dL (74-106); Osmolality,Calculated 280 (275-295); Potassium 3.6 mMol/L (3.4-5.1); Sodium 141 mMol/L (136-145); Thyroid Stimulating Hormone 1.34 uIU/mL (0.55-4.78); Total Protein 8.1 gm/dL (5.7-8.2); eGFR > 60 See Note
[2025-02-17 09:10] LABS: Chlamydia trachomatis PCR Negative (Not Detect); Neisseria Gonorrhoeae DNA PCR Negative (Not Detect); Trichomonas Negative (Negative)
[2025-02-21 13:51] LABS: Cardiolipin Ab (IgA) <2.0 APL-U/mL; Cardiolipin Ab (IgG) <2.0 GPL-U/mL; Sjogren's antibody (SS-A) >8.0 POS AI (<1.0 NEGATIVE); Sm Antibody <1.0 NEG AI (<1.0 NEGATIVE)
[2025-02-22 06:28] LABS: B2-Glycoprotein I Ab IgA <2.0 U/mL; B2-Glycoprotein I Ab IgG <2.0 U/mL; B2-Glycoprotein I Ab IgM <2.0 U/mL; Cardiolipin Ab (IgM) <2.0 MPL-U/mL; Complement Component C3* 152 mg/dL (83-193); Complement Component C4c* 26 mg/dL (15-57); DNA (ds) Antibody* 1 IU/mL; Scl-70 Antibody* <1.0 NEG AI (<1.0 NEGATIVE); Sjogren's Antibody (SS-B) <1.0 NEG AI (<1.0 NEGATIVE); Sm/RNP Antibody <1.0 NEG AI (<1.0 NEGATIVE); Thyroid Peroxidase Antibodies* 2 IU/mL (<9)
== END | disposition home or self-care (01) ==
LOC: COPL 15:11
PROVIDERS: PCP Internal Medicine; Referring Provider Obstetrics & Gynecology; Visit Provider Internal Medicine
DX: D64.9 Anemia, unspecified (principal); F32.A Depression, unspecified; F41.9 Anxiety disorder, unspecified; J45.909 Unspecified asthma, uncomplicated; K21.9 Gastro-esophageal reflux disease without esophagitis; R73.03 Prediabetes; R76.8 Other specified abnormal immunological findings in serum; Z11.3 Encounter for screening for infections with a predominantly sexual mode of transmission
CPT/HCPCS: 36415; 80053; 82728; 83540; 83550; 84439; 84443; 85025; 85652; 86140; 86146; 86147; 86160; 86225; 86235; 86376; 86880; 87491; 87591; 87661

== ENCOUNTER 2025-03-20 09:37 | Emergency (ER) | payer BC, SELFPAY ==
[2025-03-20 09:46] VITALS: BP 127/57; PULSE 84; RESP 16; TEMP 36.7; O2SAT 100; BMI 23.0
--- NOTE | 2025-03-20 09:51 | XR_ITS ---
Examination: Complete OB ultrasound, less than 14 weeks, transabdominal Date and time of exam: March 20, 2025, 1058 hours INDICATIONS: Onset left lower abdominal pain today Technique: Obstetrical ultrasound images less than 14 weeks performed via transabdominal imaging Findings: A normal shaped single intrauterine gestation is present in the uterus. Uterus 12.4 cm Intrauterine gestational sac 1.0 cm corresponds to 5 weeks 5 days gestational age. No pole, no cardiac activity Right ovary 4.2 cm, 2.2 x 2.1 x 1.9 cm cyst with irregular margins Left ovary 3.4 cm arterial flow Mild fluid in the cul-de-sac Impression: Intrauterine gestational sac 1.0 cm corresponds to 5 weeks 5 days gestational age, no pole, no cardiac activity Right ovarian cyst with irregular margins 2.2 x 2.1 cm Short-term follow-up transvaginal pelvic sonography is strongly recommended to confirm viable intrauterine gestation and to confirm benign right ovarian cyst
--- NOTE | 2025-03-20 09:51 | PD.EDRME ---
Rapid Medical Screening Exam [facility] Arrival date/time: 03/20/25 09:37 29-year-old female with no known medical history presents to the emergency room with a chief complaint of left lower quadrant abdominal pain, nausea x 2 days Patient is currently 4 to 5 weeks . Patient denies any vaginal bleeding. I have greeted and performed a focused initial assessment of this patient. A comprehensive ED assessment and evaluation of the patient, analysis of all test results, and completion of the medical decision making process will be conducted by additional ED providers. Chief Complaint: Abdominal Pain Time Seen by Provider: 03/20/25 09:39 Vital signs: Vital Signs Temperature 98.0 F 03/20/25 09:46 Pulse Rate 84 03/20/25 09:46 Respiratory Rate 16 03/20/25 09:46 Blood Pressure 127/57 L 03/20/25 09:46 Pulse Oximetry (%) 100 03/20/25 09:46 Oxygen Delivery Method Room Air 03/20/25 09:46 Vital signs reviewed by provider: Yes Exam: 7 out of 10 left lower quadrant abdominal pain and tenderness with palpation Clear bilateral lung sounds no wheezing or any abnormal breath sounds No dysuria no discharge Clinical Impression: Ectopic /threatened /ovarian torsion
--- NOTE | 2025-03-20 10:00 | PC.NURSE ---
PATIENT WAS OFFERED ZOFRAN AND TYLENOL THAT WAS ORDERED BY PROVIDER. PATIENT REFUSED MEDICATION AT THIS TIME.
[2025-03-20 11:04] LABS: Basophils # (Auto) 0.0 Thou/mm3 (0.0-0.2); Basophils % (Auto) 0 % (0-2.5); Eosinophils # (Auto) 0.0 Thou/mm3 (0.0-0.5); Eosinophils % (Auto) 0 % (0-10); Hematocrit 30.6 % (36.0-46.0); Hemoglobin 9.8 g/dL (12.0-16.0); Immature Granulocytes Auto 0.00 Thou/mm3 (0.00-0.00); Lymphocytes # (Auto) 1.4 Thou/mm3 (1.0-4.8); Lymphocytes % (Auto) 43 % (10-50); Mean Corpuscular HGB Conc 32.0 g/dl (31.0-37.0); Mean Corpuscular Hemoglobin 25.2 pg (25.0-35.0); Mean Corpuscular Volume 79 fL (80-100); Monocytes # (Auto) 0.3 Thou/mm3 (0.0-0.8); Monocytes % (Auto) 9 % (0-12); Neutrophils # (Auto) 1.5 Thou/mm3 (1.8-7.7); Neutrophils % (Auto) 48 % (37-80); Nucleated Red Blood Cell # 0.00 Thou/mm3 (0.00-0.00); Nucleated Red Blood Cell % 0 /100 WBC (0); Platelet Count 238 Thou/mm3 (140-440); RDW Standard Deviation 47.5 fL (36.4-46.3); Red Blood Count 3.89 Miln/mm3 (4.00-5.20); White Blood Count 3.2 Thou/mm3 (3.6-11.0)
[2025-03-20 11:37] LABS: Alanine Aminotransferase 12 U/L (10-49); Albumin, Serum 4.7 gm/dL (3.5-5.0); Albumin/Globulin Ratio 1.4 (1.2-2.2); Alkaline Phosphatase 29 U/L (46-116); Anion Gap 10 (7-16); Aspartate Amino Transferase 23 U/L (0-34); BUN/Creatinine Ratio 13 Ratio (12-20); Bilirubin,Total 0.4 mg/dL (0.3-1.2); Blood Urea Nitrogen 8 mg/dL (9-23); Calcium 9.2 mg/dL (8.3-10.6); Calcium (Corrected) 9.2 mg/dL (8.5-10.1); Carbon Dioxide 21.9 mMol/L (20.0-31.0); Chloride 105 mMol/L (98-107); Creatinine (Component) 0.6 mg/dL (0.6-1.3); Estimated Creatinine Clearance 108.4 mL/min (>60); Globulin 3.4 gm/dL (2.3-3.5); Glucose 108 mg/dL (74-106); Osmolality,Calculated 273 (275-295); Potassium 3.7 mMol/L (3.4-5.1); Sodium 137 mMol/L (136-145); Total Protein 8.1 gm/dL (5.7-8.2); eGFR > 60 See Note
[2025-03-20 11:51] LABS: Collection Type, Urine Clean Catch
[2025-03-20 12:11] LABS: Beta HCG,Quantitative 13782 mIU/mL (<5.0)
[2025-03-20 12:23] LABS: Bacteria,Urine Rare; Bilirubin,Urine Negative (Negative); Blood,Urine Negative (Negative); Clarity,Urine Clear (Clear/Hazy); Color,Urine Colorless (Lt Yel-Yel); Glucose, Urine Negative (Negative); Ketones,Urine Negative (Negative); Leukocyte Esterase,Urine Negative (Negative); Nitrite,Urine Negative (Negative); PH,Urine 6.5 (5.0-7.0); Protein,Urine Negative (Neg - Trace); RBC,Urine < 1 /hpf (0-3); Specific Gravity,Urine 1.005 (1.001-1.035); Squamous Epithelial Cell,Urine 1 /hpf (0-5); Urobilinogen,Urine Negative mg/dL (0.0-1.0); WBC,Urine < 1 /hpf (0-5)
--- NOTE | 2025-03-20 14:06 | PC.NURSE ---
EXPLAINED TO PT REASON FOR DELAY IN BEING SEEN. PT CONTINUING TO WAIT.
[2025-03-20 14:22] VITALS: BP 127/72; PULSE 78; RESP 16; TEMP 36.9; O2SAT 100
--- NOTE | 2025-03-20 14:23 | EDNOTE_ITS ---
ED OB Contraction Preg RMI/HPI General Chief complaint: Abdominal Pain Stated complaint: LLQ ABD PAIN; PREG 4WKS; SENT BY SPORTING GOODS SALESPERSON Time Seen by Provider: 03/20/25 09:39 Source: patient Arrival date/time: 03/20/25 09:37 29-year-old female with no known medical history presents to the emergency room with a chief complaint of left lower quadrant abdominal pain, nausea x 2 days Patient is currently 4 to 5 weeks . Patient denies any vaginal bleeding. Mode of arrival: ambulatory Limitations: no limitations RME / HPI RME / HPI Narrative: 03/20/25 09:37 29-year-old female with no known medical history presents to the emergency room with a chief complaint of left lower quadrant abdominal pain, nausea x 2 days Patient is currently 4 to 5 weeks . Patient denies any vaginal bleeding. I have greeted and performed a focused initial assessment of this patient. A comprehensive ED assessment and evaluation of the patient, analysis of all test results, and completion of the medical decision making process will be conducted by additional ED providers. Exam: 7 out of 10 left lower quadrant abdominal pain and tenderness with palpation Clear bilateral lung sounds no wheezing or any abnormal breath sounds No dysuria no discharge Impression: Ectopic /threatened /ovarian torsion Related Data Previous Rx's ?Medication ?Instructions ?Recorded ondansetron 4 mg disintegrating 4 mg PO Q8H PRN nausea and 03/20/25 tablet vomiting #14 tabs Allergies Allergy/AdvReac Type Severity Reaction Status Date / Time No Known Allergies Allergy Verified 03/20/25 09:41 Review of Systems Review of Systems Systems Reviewed: All systems reviewed, normal except as documented Constitutional Constitutional: Reports system reviewed and no additional complaints, except as documented, Denies fatigue, Denies fever(s), Denies headache(s) and Denies weakness Eyes Eyes: Reports system reviewed and no additional complaints, except as documented, Denies blurry vision and Denies change in vision ENT Ears, Nose, Mouth, and Throat: Reports system reviewed and no additional complaints, except as documented, Denies otalgia, Denies headache(s), Denies nasal congestion, Denies throat swelling and Denies vertigo Cardiovascular Cardiovascular: Reports system reviewed and no additional complaints, except as documented, Denies chest pain, Denies dyspnea and Denies dyspnea on exertion Respiratory Respiratory: Reports system reviewed and no additional complaints, except as documented, Denies chest congestion, Denies cough, Denies dyspnea, Denies dyspnea on exertion and Denies wheezing Gastrointestinal Gastrointestinal: Reports system reviewed and no additional complaints, except as documented, Denies abdominal pain, Denies cramping, Denies nausea and Denies vomiting Genitourinary Genitourinary: Reports system reviewed and no additional complaints, except as documented, Denies abnormal vaginal bleeding and Reports pelvic pain Musculoskeletal Musculoskeletal: Reports system reviewed and no additional complaints, except as documented and Denies back pain Integumentary/Breasts Skin/Breast: Reports system reviewed and no additional complaints, except as documented and Denies wounds Neurologic Neurologic: Reports system reviewed and no additional complaints, except as documented, Denies confusion, Denies headache(s), Denies lack of coordination, Denies vertigo and Denies weakness Psychiatric Psychiatric: Reports system reviewed and no additional complaints, except as documented, Denies anxiety, Denies confusion, Denies depression, Denies paranoia, Denies suicidal ideation and Denies tactile hallucinations Endocrine Endocrine: Reports system reviewed and no additional complaints, except as documented and Denies fatigue Hematologic/Lymphatic Hematologic/Lymphatic: Reports system reviewed and no additional complaints, exc ept as documented and Denies lymphadenopathy Allergic/Immunologic Allergic/Immunologic: Reports system reviewed and no additional complaints, except as documented, Denies throat swelling, Denies urticaria and Denies wheezing ED Exam General Limitations: Present no limitations General appearance: Present alert and in no apparent distress Head Head exam: Present atraumatic Eye Eye exam: Present normal appearance, PERRL and EOMI ENT ENT exam: Present normal exam, normal oropharynx and mucous membranes moist Neck Neck exam: Present normal inspection, full ROM and trachea midline Chest Chest inspection: Present normal inspection and symmetric chest wall rise Respiratory Respiratory exam: Present normal lung sounds bilaterally Cardiovascular Cardiovascular exam: Present regular rate, normal rhythm and normal heart sounds Abdominal Exam Abdominal exam: Present soft, tenderness and normal bowel sounds Abdominal tenderness: Present LLQ and moderate; Absent RLQ or suprapubic Extremities Exam Extremities exam: Present normal inspection and full ROM Back Exam Back exam: Present normal inspection and full ROM Neurological Exam Neurological exam: Present alert, oriented X3 and CN II-XII intact Psychiatric Psychiatric exam: Present normal affect and normal mood Skin Skin exam: Present warm, dry, intact and normal color Course Quality Measures none Orders Category Date Time Status US OB <= 14 weeks fetus Stat Exams 10/28/25 09:51 Completed ABO/RH Type Stat Lab 03/20/25 10:30 Completed Beta HCG,Quantitative Stat Lab 03/20/25 10:30 Completed CBC Stat Lab 03/20/25 10:30 Completed CMP [Comprehensive Metabolic Panel] Stat Lab 03/20/25 10:30 Completed UA [Urinalysis] Stat Lab 03/20/25 11:40 Completed Acetaminophen Tab [Tylenol Tab] Med 03/20/25 09:51 Discontinued 650 mg PO X1 ONE Ondansetron Odt [Zofran Odt] Med 03/20/25 09:51 Discontinued 4 mg PO X1 ONE Vital Signs Vital signs: Vital Signs Temperature 98.0 F 03/20/25 09:46 Pulse Rate 84 03/20/25 09:46 Respiratory Rate 16 03/20/25 09:46 Blood Pressure 127/57 L 03/20/25 09:46 Pulse Oximetry (%) 100 03/20/25 09:46 Oxygen Delivery Method Room Air 03/20/25 09:46 OB/Uterine Contractions MDM Narrative MDM Narrative:: 29-year-old female with no known medical history presents to the emergency room with a chief complaint of left lower quadrant abdominal pain, nausea x 2 days Patient is currently 4 to 5 weeks . Patient denies any vaginal bleedin g. Patient is hemodynamically stable and in no apparent distress Physical examination shows some tenderness to the left lower quadrant with palpable patient patient is also having some nausea Ultrasound OB shows an intrauterine sac but no cardiac activity. The patient is currently 5 weeks and 5 days. hCG levels are at 13,128 There is a right ovarian cyst as well but there is arterial flow to the left ovary. At this point there is no suspicion for an ectopic Patient was given strict return precautions to return in 3 days for repeat blood work and a transvaginal ultrasound Patient was discharged and educated to follow-up with primary care provider in the next 24 to 48 hours and return to the emergency room for any evidence of worsening signs or symptoms Patient data External records reviewed:: [facility] previous records Clinical information provided by:: patient Social determinants that could affect healthcare access:: none Patient has the following chronic illnesses:: No chronic How is presenting disease/condition affected by chronic disease/condition?: no chronic disease Evaluation data The following diagnostics were reviewed and interpreted by me:: lab results and radiology exam(s) Lab and/or radiology exams considered but not ordered:: Labs and radiology exams considered and ordered Interpretation Summary: Ultrasound OB-Findings: A normal shaped single intrauterine gestation is present in the uterus. Uterus 12.4 cm Intrauterine gestational sac 1.0 cm corresponds to 5 weeks 5 days gestational age. No pole, no cardiac activity Right ovary 4.2 cm, 2.2 x 2.1 x 1.9 cm cyst with irregular margins Left ovary 3.4 cm arterial flow Mild fluid in the cul-de-sac Impression: Intrauterine gestational sac 1.0 cm corresponds to 5 weeks 5 days gestational age, no pole, no cardiac activity Right ovarian cyst with irregular margins 2.2 x 2.1 cm Short-term follow-up transvaginal pelvic sonography is strongly recommended to confirm viable intrauterine gestation and to confirm benign right ovarian cyst Medications / Prescriptions Medications or Prescriptions considered but not ordered:: Medication given Medication administrations:: Medication Administration History Discontinued Medications Acetaminophen (Acetaminophen 325 Mg Tablet) 650 mg PO X1 ONE Stop: 03/20/25 09:52 Last Admin: 03/20/25 11:48 Dose: Not Given Documented By: OA Non-Admin Reason: Patient Refused Ondansetron HCl (Ondansetron Odt 4 Mg Tabrap) 4 mg PO X1 ONE; Protocol Stop: 03/20/25 09:52 Last Admin: 03/20/25 11:48 Dose: Not Given Documented By: OA Non-Admin Reason: Patient Refused Medication given Consultations Consultation(s) initiated? (list below): No Diagnosis OB Contractions Differential Diagnosis: other (Threatened /ectopic /UTI/abdominal cramping while ) Most likely diagnosis given after review of the tests above:: Abdominal cramping while Admission Indicated Admission indicated?: not indicated Explain why admission is indicated or not indicated:: N/A Admission Request Was there a request for admission?: No Disposition Plan Disposition Plan: Discharge Discharge Attestation Discharge Attestation: The patient and all family members were given an opportunity to ask questions and understood the discharge instructions. Discharge instructions specifically effects, indications for sooner follow up or return to the emergency department, and the expected course of current diagnosis. Patient condition: Stable Discharge Plan Plan Patient Disposition: HOME (Self Care) Discharge Disposition comment: Stable Prescriptions/Referrals Prescriptions/Med Rec: New ondansetron 4 mg tablet,disintegrating 4 mg PO Q8H PRN (Reason: nausea and vomiting) Qty: 14 0RF Referrals: Damion Freeman MD [Primary Care Provider, Internal Medicine] - In 1 week Problem List Clinical Impression: Abdominal cramping affecting Patient/Caregiver Discharge Instructions Education Materials: Abdominal Pain Additional Instructions: Please follow-up with your CLAIMS SORTER in the next 24 to 48 hours Your ultrasound was completed and shows intrauterine gestational sac but no cardiac activity. This could be due to you being 5 weeks and [address] recommends short-term follow-up and repeat blood work in 3 days There is also an ovarian cyst to the right ovary For any evidence of worsening signs or symptoms return to the emergency room immediately Print Language: Citizen Of [place] Stand Alone Forms: Mae Award Info., Work/School Release, Patient Portal Info Letter PA/CONTROL OFFICER MANAGER Supervising Physician PA/CONTROL OFFICER MANAGER Supervising Physician: Dr. Cantu
== END 2025-03-20 15:21 | disposition home or self-care (01) ==
PROVIDERS: Nurse Practitioner Family; Emergency Provider Family Medicine; PCP Internal Medicine
DX: O26.891 Other specified pregnancy related conditions, first trimester (principal); Z3A.01 Less than 8 weeks gestation of pregnancy
CPT/HCPCS: 36415; 76801; 80053; 81001; 84702; 85025; 86900; 86901; 99283

== ENCOUNTER 2025-04-07 23:31 | Emergency (ER) | payer BC, SELFPAY ==
[2025-04-08 00:19] VITALS: BP 107/72; PULSE 80; RESP 18; TEMP 37; O2SAT 97; BMI 25.4
--- NOTE | 2025-04-08 00:20 | PD.EDRME ---
Rapid Medical Screening Exam [facility] Arrival date/time: 04/07/25 23:31 This is a case of 29-year-old female who came into the emergency room due to vaginal bleeding patient is 4 para 3 patient states that she took induced medication and started to have pelvic cramping and vaginal bleeding Chief Complaint: Vaginal Bleeding Time Seen by Provider: 04/08/25 00:20 Exam: Moderate tenderness suprapubic area no guarding no rebound no rigidity excellent skin turgor Clinical Impression: Vaginal bleeding in
--- NOTE | 2025-04-08 00:34 | PD.EDVAGBL ---
ED OB Contraction Preg RMI/HPI General Chief complaint: Vaginal Bleeding Stated complaint: VAGINAL BLEEDING Time Seen by Provider: 04/08/25 00:20 Arrival date/time: 04/07/25 23:31 NATASHA / CHERI OSWALD Complaint: vaginal bleeding Vaginal bleeding: heavy and clots Number of weeks : 7 care: none RME / HPI Narrative: 04/07/25 23:31 This is a case of 29-year-old female who came into the emergency room due to vaginal bleeding patient is 4 para 3 patient states that she took induced medication and started to have pelvic cramping and vaginal bleeding Dr. Mcrae?s Main ED Evaluation: 29 y/o female G4, P3, with Hx of anemia presents with vaginal bleeding and generalized fatigue x 5 PM. Patient had an induced elective via mifepristone and misoprostol started 2 days ago. Patient states she passed small amount of blood and tissue first. She states she then passed a large clot and became very concerned about that. Patient was about 7 weeks . She is complaining of lightheadedness as well. Exam: Moderate tenderness suprapubic area no guarding no rebound no rigidity excellent skin turgor Impression: Vaginal bleeding in Related Data Previous Rx's ?Medication ?Instructions ?Recorded ondansetron 4 mg disintegrating 4 mg PO Q8H PRN nausea and 03/20/25 tablet vomiting #14 tabs Allergies Allergy/AdvReac Type Severity Reaction Status Date / Time No Known Allergies Allergy Verified 03/20/25 09:41 Review of Systems Review of Systems Systems Reviewed: All systems reviewed, normal except as documented Past Medical History Past Medical History GASTROINTESTINAL: Positive Gastrointestinal Disorders and Gastroesophageal Reflux Disease REPRODUCTIVE: Positive Previous Pregnancies (x 3) HEMATOLOGIC: Positive Blood Disorders and Anemia PSYCHO/SOCIAL: Positive Anxiety (no medications) OTHER HISTORY: Positive Hospitalization (Surgery and 3 NVD) ED Exam Narrative Physical exam: GENERAL APPEARANCE: alert and oriented x 4, well-developed, well-nourished, no acute distress VITALS: All vitals were reviewed and the pulse ox is 97% on room air, which is normal according to my interpretation. HEENT: Normocephalic, atraumatic; pupils equal, round, reactive to light; EOMI; mucous membranes pink, moist; oropharynx clear NECK: Supple LUNGS: CTABL; no wheezes, no rales, no rhonchi HEART: Regular rate, regular rhythm; normal S1, S2; no murmurs ABDOMEN: non distended; normal BS; soft, no tenderness, no guarding, no rebound; no masses, no organomegaly, no hernia BACK: no CVA tenderness EXTREMITIES: atraumatic; no edema NEUROLOGIC: awake; alert and oriented x4; cranial nerves II-XII grossly intact; no focal sensory or motor deficits PSYCHIATRIC: appropriate mood and affect SKIN: warm, dry, normal color; no rashes Course Quality Measures none Orders Category Date Time Status Orthostatic Vitals NOW Care 04/08/25 00:34 Completed US OB <= 14 weeks fetus Stat Exams 04/08/25 00:20 Stop Req ABO/RH Type Stat Lab 04/08/25 00:49 Completed CBC Stat Lab 04/08/25 00:49 Completed Vital Signs Vital signs: Vital Signs Temperature 98.6 F 04/08/25 00:19 Pulse Rate 80 04/08/25 00:19 Respiratory Rate 18 04/08/25 00:19 Blood Pressure 107/72 04/08/25 00:19 Pulse Oximetry (%) 97 04/08/25 00:19 Oxygen Delivery Method Room Air 04/08/25 00:19 Orthostatics: Lying Down: BP: 115/76, HR: 74 Standing: BP: 102/71, HR: 86 Vaginal Bleeding MDM Narrative MDM Narrative: Patient is a 29-year-old female who had an elective via Mifepristone and Misoprostol starting 2 days ago. She passed tissue followed by a large clot. Patient took pictures of both. It appears that she passed the placenta along with that clot. Patient's orthostatic vital signs are normal, H/H is 10/30 which is stable from prior. I encouraged the patient to follow-up with her primary assurance services manager health care and to call on Wednesday morning for a follow-up appointment. Scribe Attestation: Rosy Quinteros, am scribing for and in the presence of Dr. Mcrae. Provider Notation: Although this document has been carefully reviewed, there may still be some phonetic and other typographical errors. These errors are purely grammatical due to imperfections in the software program and should not be construed in any way to compromise the substance of the patient's medical care during this visit. Patient data External records reviewed:: [facility] previous records (Reviewed prior ED records from 03/20/25. Patient was seen for Abdominal cramping affecting .) Clinical information provided by:: patient Social determinants that could affect healthcare access:: none Patient has the following chronic illnesses:: Anemia, Anxiety, GERD How is presenting disease/condition affected by chronic disease/condition?: exacerbated by Evaluation data The following diagnostics were reviewed and interpreted by me:: lab results Lab and/or radiology exams considered but not ordered:: None Interpretation Summary: See MDM above Medications / Prescriptions Medications or Prescriptions considered but not ordered:: None Medication administrations:: See above if any Consultations Consultation(s) initiated? (list below): No Diagnosis Vaginal Bleeding Differential Diagnosis: missed , dysfunctional uterine bleeding, incomplete , vaginal bleeding and other (Elective ) Most likely diagnosis given after review of the tests above:: See clinical impression below Admission Indicated Admission indicated?: not indicated Explain why admission is indicated or not indicated:: Patient has no emergent abnormalities in their studies and can be managed on an outpatient basis. Admission Request Was there a request for admission?: No Disposition Plan Disposition Plan: Discharge Discharge Attestation Discharge Attestation: The patient and all family members were given an opportunity to ask questions and understood the discharge instructions. Discharge instructions specifically effects, indications for sooner follow up or return to the emergency department, and the expected course of current diagnosis. Patient condition: Stable Discharge Plan Plan Patient Disposition: HOME (Self Care) Discharge Disposition comment: Stable for discharge home Patient condition on transfer: Stable Prescriptions/Referrals Prescriptions/Med Rec: No Action ondansetron 4 mg tablet,disintegrating 4 mg PO Q8H PRN (Reason: nausea and vomiting) Qty: 14 0RF Problem List Clinical Impression: Vaginal bleeding, Status post elective Patient/Caregiver Discharge Instructions Discharge Activity: activity as tolerated Education Materials: ED Dysfunctional Uterine Bleeding Additional Instructions: Please return to the emergency department if you have any worsening or any further medical problems and we will help you. Otherwise you should follow-up with your primary care doctor within the next several days. Print Language: French Stand Alone Forms: Mae Award Info., Work/School Release, Patient Portal Info Letter
[2025-04-08 00:52] VITALS: BP 102/71; BP 106/71; BP 115/76; PULSE 74; PULSE 80; PULSE 89
[2025-04-08 00:55] LABS: Basophils # (Auto) 0.0 Thou/mm3 (0.0-0.2); Basophils % (Auto) 0 % (0-2.5); Eosinophils # (Auto) 0.0 Thou/mm3 (0.0-0.5); Eosinophils % (Auto) 0 % (0-10); Hematocrit 30.4 % (36.0-46.0); Hemoglobin 9.9 g/dL (12.0-16.0); Immature Granulocytes Auto 0.02 Thou/mm3 (0.00-0.00); Lymphocytes # (Auto) 1.9 Thou/mm3 (1.0-4.8); Lymphocytes % (Auto) 23 % (10-50); Mean Corpuscular HGB Conc 32.6 g/dl (31.0-37.0); Mean Corpuscular Hemoglobin 25.7 pg (25.0-35.0); Mean Corpuscular Volume 79 fL (80-100); Monocytes # (Auto) 0.5 Thou/mm3 (0.0-0.8); Monocytes % (Auto) 7 % (0-12); Neutrophils # (Auto) 5.5 Thou/mm3 (1.8-7.7); Neutrophils % (Auto) 70 % (37-80); Nucleated Red Blood Cell # 0.00 Thou/mm3 (0.00-0.00); Nucleated Red Blood Cell % 0 /100 WBC (0); Platelet Count 201 Thou/mm3 (140-440); RDW Standard Deviation 47.1 fL (36.4-46.3); Red Blood Count 3.85 Miln/mm3 (4.00-5.20); White Blood Count 7.9 Thou/mm3 (3.6-11.0)
== END 2025-04-08 01:22 | disposition home or self-care (01) ==
PROVIDERS: Nurse Practitioner Family; Emergency Provider Emergency Medicine; PCP Internal Medicine
DX: O04.6 Delayed or excessive hemorrhage following (induced) termination of pregnancy (principal)
CPT/HCPCS: 36415; 80053; 81001; 84702; 85025; 86900; 86901; 99282

== ENCOUNTER → 2025-04-17 | Outpatient (CLI) | payer BC, SELFPAY ==
[2025-04-17 18:06] LABS: Beta HCG,Quantitative 2000 mIU/mL (<5.0)
== END | disposition home or self-care (01) ==
LOC: COPL 16:21
PROVIDERS: PCP Internal Medicine; Referring Provider Obstetrics & Gynecology; Visit Provider Obstetrics & Gynecology
DX: O03.9 Complete or unspecified spontaneous abortion without complication (principal)
CPT/HCPCS: 36415; 84702

== ENCOUNTER → 2025-04-24 | Outpatient (CLI) | payer BC, SELFPAY ==
[2025-04-24 17:46] LABS: Beta HCG,Quantitative 456 mIU/mL (<5.0); HCG,Qualitative Serum Positive
== END | disposition home or self-care (01) ==
LOC: COPL 16:12
PROVIDERS: PCP Internal Medicine; Referring Provider Obstetrics & Gynecology; Visit Provider Obstetrics & Gynecology
DX: O03.9 Complete or unspecified spontaneous abortion without complication (principal)
CPT/HCPCS: 36415; 84702; 84703

== ENCOUNTER → 2025-05-01 | Outpatient (CLI) | payer BC, SELFPAY ==
[2025-05-01 15:28] LABS: Beta HCG,Quantitative 69 mIU/mL (<5.0)
== END | disposition home or self-care (01) ==
LOC: COPL 14:32
PROVIDERS: PCP Internal Medicine; Referring Provider Obstetrics & Gynecology; Visit Provider Obstetrics & Gynecology
DX: O03.9 Complete or unspecified spontaneous abortion without complication (principal)
CPT/HCPCS: 36415; 84702

== ENCOUNTER → 2025-05-08 | Outpatient (CLI) | payer BC, SELFPAY ==
[2025-05-08 18:10] LABS: Beta HCG,Quantitative 15 mIU/mL (<5.0)
== END | disposition home or self-care (01) ==
LOC: COPL 15:49
PROVIDERS: PCP Internal Medicine; Referring Provider Obstetrics & Gynecology; Visit Provider Obstetrics & Gynecology
DX: O03.9 Complete or unspecified spontaneous abortion without complication (principal)
CPT/HCPCS: 36415; 84702